=== PATIENT | male | born 1970 | race African-American/Black ===

== ENCOUNTER 2021-11-23 23:02 | Inpatient (IN) | payer MEDICARE, OTHER ==
[~2021-11-23] VITALS: Ht 167.6 cm; Wt 57.2 kg
[2021-11-23] MEDS ORDERED: BLOOD SUGAR DIAGNOSTIC 1 EACH STRIP IN ONE (23:50)
[2021-11-24] MEDS ORDERED: MAGNESIUM HYDROXIDE 30 ML UDC PO PRN
[2021-11-24] MEDS ORDERED: MAG HYDROX/AL HYDROX/SIMETH 30 ML UDC PO PRN
[2021-11-24] MEDS ORDERED: DOCU100C36 PO (00:12)
[2021-11-24] MEDS ORDERED: ERGO500093 PO (00:14)
[2021-11-24] MEDS ORDERED: PANT40TA49 PO (00:15)
[2021-11-24] MEDS ORDERED: QUET400T PO (00:16)
[2021-11-24] MEDS ORDERED: THIA100T70 PO (00:17)
[2021-11-24] MEDS ORDERED: TRAZ-257 PO (00:18)
[2021-11-24] MEDS ORDERED: DIAZ2TAB PO (00:20)
[2021-11-24 01:22] VITALS: BP 139/88
--- NOTE | 2021-11-24 01:40 | NUR ---
GPS RN NEW GRAD NOTES: PATIENT ARRIVED THIS UNIT ON A GURNEY WITH 2 ER ESCORT ON 11/23/21 AT 2315. PATIENT WAS ADMITTED FROM [facility], ORIGINALLY HOMELESS. PATIENT IS ON A 5150 HOLD FOR DTS/GD. HOLD WAS PLACED ON 11/23/21 @ 1240. PER HOLD, PATIENT HAS THOUGHTS OF WALKING IN FRONT OF CARS BECAUSE HIS , CHILDREN AND FAMILY DON'T WANT TO DEAL WITH HIM. PER PATIENT "I DON'T KNOW WHERE TO GO, THERE'S NOTHING FOR ME ON THIS EARTH". PATIENT FEELS DEPRESSED, HOPELESS AND STATED HE DOES NOT SEE A FUTURE ANY MORE. PATIENT ALSO REPORTED HEARING VOICES TELLING HIM TO HURT HIMSELF, SEE'S SHADOWY FIGURES, BLACK BIRDS THAT LOOK LIKE BATS, BELIEVES OTHERS ARE OUT TO GET HURT HIM AND THAT TV TALKS TO HIM. PATIENT HAS NO PLAN FOR SELF CARE. PATIENT DRINKS 1 PINT OF ALCOHOL DAILY. UPON FACE TO FACE EVALUATION, PATIENT IS A/O X3, APPEARS DEPRESSED, FLAT AFFECT, ANXIOUS, DISORGANIZED, POOR INSIGHT, LABILE, ABLE TO MAKE NEEDS KNOWN. PATIENT IS UNDER THE PSYCHIATRIC CARE OF DR AGUILAR AND MEDICAL CARE OF G[facility]A. BOTH WERE NOTIFIED OF PATIENT ADMISSION AND ORDERS CARRIED OUT. PATIENT BELONGINGS WERE INVENTORIED AND CONTRABANDS REMOVED AND PLACED IN CONTRABAND LOCKER. PATIENT HAS NO S/S OF DISTRESS, RESPIRATION EVEN AND UNLABORED WITH EQUAL RISE AND FALL OF THE CHEST, ON ROOM AIR. [id number]. SKIN ASSESSMENT DONE, SKIN INTACT. PATIENT SIGNED ALL ADMISSION PAPER WORK. PER PATIENT HE GOT FULLY VACCINATED FOR COVID 19 IN DECEMBER 2020, HAD HIS FLU SHOT IN JULY 2021 BUT REFUSED PNEUMONIA VACCINE WHEN OFFERED. PATIENT BED IS IN LOWEST POSITION AND LOCKED, SIDE RAILS UP X2 FOR SAFETY. CALL LIGHT WITHIN REACH. OFFERED FLUID AND SNACKS TOLERATED. WILL CONTINUE TO MONITOR Q15 ROUNDS FOR SAFETY, MOOD AND BEHAVIOR.
[2021-11-24 03:39] VITALS: BP 139/88
--- NOTE | 2021-11-24 06:40 | NUR ---
GPS RN CLOSING NOTES: CALLED PATIENT SISTER MELODY BLACK ([phone]) AND LEFT A MESSAGE AND A CALL BACK NUMBER AT [phone]. PATIENT IS CURRENTLY AWAKE, A/O X3. PATIENT SLEPT 5HR THIS SHIFT. NO S/S OF DISTRESS. RESPIRATION EVEN AND UNLABORED WITH EQUAL RISE AND FALL OF THE CHEST, ON ROOM AIR. ALL PATIENT CARE NEEDS HAVE BEEN MET ANTICIPATED. WILL CONTINUE TO MONITOR AND ENDORSE TO AM SHIFT TO FOLLOW UP.
[2021-11-24 06:41] LABS: BASOPHILS # (AUTO) 0.1 K/uL (0.0-0.2); BASOPHILS % (AUTO) 1.3 % (0.0-2.0); EOSINOPHILS % (AUTO) 13.4 % (0.0-6.0); HEMATOCRIT 36 % (39-51); LYMPHOCYTES % (AUTO) 49.9 % (20.0-44.0); MEAN CORPUSCULAR HGB CONC 33 g/dl (31.0-36.0); MEAN CORPUSCULAR VOLUME 95 fL (80-96); MONOCYTES # (AUTO) 0.9 K/uL (0.1-1.30); MONOCYTES % (AUTO) 15.3 % (2.0-12.0); NEUTROPHILS # (AUTO) 1.2 K/uL (1.8-8.9); NEUTROPHILS % (AUTO) 20.1 % (43.0-81.0); PLATELET COUNT (AUTO) 150 K/uL (150-450); RED BLOOD CELL COUNT(AUTO) 3.78 MIL/uL (4.5-6.0); WHITE BLOOD COUNT (AUTO) 6.1 K/uL (4.3-11.0)
[2021-11-24 08:00] VITALS: BP 91/60
[2021-11-24] MEDS: NICOTINE PATCH (21MG) 21 MG PATCH.TD24 TD SCH (09:14)
[2021-11-24] MEDS: PANTOPRAZOLE 40 MG TABLET.DR PO SCH (09:14)
[2021-11-24] MEDS: LORAZEPAM 1 MG TABLET PO PRN ×2 (09:14→20:18)
[2021-11-24] MEDS: DOCUSATE SODIUM 100 MG CAPSULE PO SCH ×2 (09:14→17:31)
[2021-11-24] MEDS: THIAMINE HCL 100 MG TABLET PO SCH (09:14)
--- NOTE | 2021-11-24 09:14 | NUR ---
RN-NOTES PATIENT REQUESTING ATIVAN FOR HIS ANXIETY. ATIVAN 1MG P.O GIVEN PRN ORDER. WILL CONT. MONITORING FOR SAFETY AND BEHAVIOR.
--- NOTE | 2021-11-24 09:53 | NUR ---
SW Source Admit: Pt placed on a 5150 hold for danger to self and GD. Pt brought to the hospital because he was making suicidal comments. Patient is currently homeless and stated that he lives in his friends cars/houses. SW gave pt SNF options, pt stated he will "think about it". Pt will need possible placement.
--- NOTE | 2021-11-24 09:53 | NUR ---
WILLY Initial Discharge Note: Patient is currently homeless and stated that he lives in his friends cars/houses. SW gave pt SNF options, pt stated he will "think about it". Pt will need possible placement. WILLY will work with the MD and treatment team to help coordinate appropriate discharge.
--- NOTE | 2021-11-24 09:58 | NUR ---
WILLY Family Contact: WILLY contacted patient's brother Steven ([phone]) to notify of pt's admission and discuss treatment/discharge plan.
--- NOTE | 2021-11-24 10:06 | NUR ---
Social Work Note/Substance Abuse Intervention: Patient was provided with a brief substance abuse intervention and referred to [facility] ([phone]), [facility] ([phone]), and [facility] ([phone]) for smoking and drinking daily.
[2021-11-24 10:07] LABS: CALCIUM, SERUM 8.3 mg/dL (8.5-10.1); CREATININE 0.8 mg/dL (0.6-1.3); POTASSIUM 4.1 mmol/L (3.5-5.1)
--- NOTE | 2021-11-24 10:15 | NUR ---
RN-NOTES PATIENT WATCHING TV IN THE DAY ROOM,CALM NO ACUTE DISTRESS NOTED.
[2021-11-24 16:00] VITALS: BP 148/96
[2021-11-24 20:00] VITALS: BP 109/76
--- NOTE | 2021-11-24 20:20 | NUR ---
GPS RN NOTES: PATIENT IS RESTLESS, ANXIOUS, PACING IN HALLWAY AND COMPLAINING OF ANXIETY. ATIVAN 1MG GIVEN PO AT 2018. WILL CONTINUE TO MONITOR.
[2021-11-24] MEDS: TRAZODONE 50 MG TABLET PO SCH (22:23)
[2021-11-24] MEDS: QUETIAPINE FUMARATE 100 MG TABLET PO SCH (22:23)
[2021-11-25 07:56] LABS: BASOPHILS # (AUTO) 0.1 K/uL (0.0-0.2); BASOPHILS % (AUTO) 1.6 % (0.0-2.0); EOSINOPHILS % (AUTO) 11.1 % (0.0-6.0); HEMATOCRIT 39 % (39-51); HEMOGLOBIN 12.9 g/dL (13.5-17.5); LYMPHOCYTES % (AUTO) 43.8 % (20.0-44.0); MEAN CORPUSCULAR HGB CONC 33 g/dl (31.0-36.0); MEAN CORPUSCULAR VOLUME 95 fL (80-96); MONOCYTES # (AUTO) 1.1 K/uL (0.1-1.30); MONOCYTES % (AUTO) 15.5 % (2.0-12.0); NEUTROPHILS # (AUTO) 1.9 K/uL (1.8-8.9); PLATELET COUNT (AUTO) 160 K/uL (150-450); RED BLOOD CELL COUNT(AUTO) 4.11 MIL/uL (4.5-6.0); WHITE BLOOD COUNT (AUTO) 6.8 K/uL (4.3-11.0)
[2021-11-25 08:00] VITALS: BP 136/85
[2021-11-25] MEDS: NICOTINE PATCH (21MG) 21 MG PATCH.TD24 TD SCH (08:08)
[2021-11-25] MEDS: QUETIAPINE FUMARATE 100 MG TABLET PO SCH ×2 (08:09→21:20)
[2021-11-25] MEDS: THIAMINE HCL 100 MG TABLET PO SCH (08:09)
[2021-11-25] MEDS: PANTOPRAZOLE 40 MG TABLET.DR PO SCH (08:12)
[2021-11-25] MEDS: LORAZEPAM 1 MG TABLET PO PRN ×3 (09:25→22:36)
[2021-11-25] MEDS: DOCUSATE SODIUM 100 MG CAPSULE PO SCH ×2 (09:26→16:58)
--- NOTE | 2021-11-25 09:26 | NUR ---
RN-NOTES PATIENT REQUESTING ATIVAN FOR HIS ANXIETY. ATIVAN 1MG P.O GIVEN PRN ORDER. WILL CONT. MONITORING FOR SAFETY AND BEHAVIOR.
--- NOTE | 2021-11-25 10:40 | NUR ---
RN-NOTES PATIENT WATCHING TV IN THE DAY ROOM,CALM NO ACUTE DISTRESS NOTED.
[2021-11-25 12:34] LABS: CREATININE 0.8 mg/dL (0.6-1.3); MAGNESIUM 1.5 mg/dL (1.8-2.4); PHOSPHORUS 4.4 mg/dL (2.5-4.9); POTASSIUM 4.2 mmol/L (3.5-5.1)
[2021-11-25] MEDS ORDERED: MAGNESIUM OXIDE 400 MG TABLET PO ONE (15:30)
[2021-11-25] MEDS ORDERED: K PHOS NEUTRAL 250 MG TABLET PO ONE (15:30)
--- NOTE | 2021-11-25 15:47 | NUR ---
RN-NOTES PATIENT REQUESTING ATIVAN FOR HIS ANXIETY. ATIVAN 1MG P.O GIVEN PRN ORDER. WILL CONT. MONITORING FOR SAFETY AND BEHAVIOR.
[2021-11-25 16:00] VITALS: BP 115/70
--- NOTE | 2021-11-25 18:12 | NUR ---
RN-NOTES PATIENT WATCHING TV IN THE DAY ROOM,CALM NO ACUTE DISTRESS NOTED.
--- NOTE | 2021-11-25 19:30 | NUR ---
GPS RN NOTE, RECEIVED PATIENT AWAKE AND IN BED, NO S/S OR COMPLAINTS OF PAIN AT THIS TIME. PATIENT IS DISPLAYING NO S/S OF APPARENT DISTRESS AT THIS TIME. PATIENT BREATHING IS UNLABORED WITH EQUAL RISE AND FALL OF THE CHEST. PATIENT IS ALERT AND ORIENTED X 3 ON ROOM AIR WITH A SPO2 97%. PATIENT IS COMPLIANT WITH MEDICATIONS, ANXIOUS, FOCUSED ON D/C, MAKES NEEDS KNOWN, AND COOPERATIVE. PATIENT DENIES SUICIDAL AND HOMICIDAL IDEATIONS AT THIS TIME. PATIENT ASSISTED WITH TURNING AND REPOSITIONING Q2HR AND PRN FOR COMFORT AND CIRCULATION. PATIENT HAS NO NEEDS AT THIS TIME. PATIENT EDUCATED ON THE USE OF THE CALL STUART. PATIENT BED SIDE RAILS UP X 2 FOR SAFETY. PATIENT BED IS LOCKED, LOW, WITH BED ALARM ON. WILL CONTINUE TO MONITOR THIS PATIENT Q15 MINUTES WITH THE HELP OF STAFF TO MAINTAIN SAFETY.
[2021-11-25 20:00] VITALS: BP 132/68
--- NOTE | 2021-11-25 21:00 | NUR ---
GPS RN NOTE, LAB CALLED WITH A POSITIVE MRSA RESULT IN NARES FOR THIS PATIENT. PAGED [facility] AND INFORMED DENISE MARIANO DNP OF MY FINDINGS. DENISE MARIANO DNP ORDERED BACTROBAN OINT 2 % 1 GM NS Q12HR STARTING AT 0900 AND TO PUT PATIENT ON CONTACT ISOLATION PRECAUTIONS. ALL ORDERS NOTED AND CARRIED WILL CONTINUE TO MONITOR THIS PATIENT WITH THE HELP OF STAFF.
[2021-11-25] MEDS: TRAZODONE 50 MG TABLET PO SCH (21:20)
--- NOTE | 2021-11-25 22:36 | NUR ---
GPS RN NOTE, PATIENT HAS A COMPLAINT OF FEELING ANXIOUS AND IS REQUESTING ATIVAN AT THIS TIME. PATIENT VITAL SIGNS ARE STABLE. GAVE ATIVAN 1MG PO Q4HR PRN ORDERED. WILL REASSESS FOR INSOMNIA AND I WILL CONTINUE TO MONITOR THIS PATIENT WITH THE HELP OF STAFF.
[2021-11-26] MEDS: THIAMINE HCL 100 MG TABLET PO SCH (07:52)
[2021-11-26] MEDS: NICOTINE PATCH (21MG) 21 MG PATCH.TD24 TD SCH (07:52)
[2021-11-26] MEDS: PANTOPRAZOLE 40 MG TABLET.DR PO SCH (07:53)
[2021-11-26] MEDS: QUETIAPINE FUMARATE 100 MG TABLET PO SCH ×2 (07:53→20:54)
[2021-11-26] MEDS: DOCUSATE SODIUM 100 MG CAPSULE PO SCH ×2 (07:53→16:45)
[2021-11-26 08:00] VITALS: BP 145/95
[2021-11-26] MEDS: MUPIROCIN OINT 2% 22 GM TUBE NS SCH ×2 (08:11→20:52)
[2021-11-26] MEDS: LORAZEPAM 1 MG TABLET PO PRN ×2 (10:01→22:06)
--- NOTE | 2021-11-26 10:02 | NUR ---
RN-CO: ATIVAN 1 MG PO GIVEN FOR C/O ANXIETY.
[2021-11-26 16:00] VITALS: BP 103/73
[2021-11-26 19:47] VITALS: BP 144/88
[2021-11-26] MEDS: TRAZODONE 50 MG TABLET PO SCH (21:02)
--- NOTE | 2021-11-26 22:43 | NUR ---
Patient c/o of feeling anxious,requested and given Ativan 1 mg PO as ordered.Will monitor for the effectivity within 1 hour.
--- NOTE | 2021-11-26 22:44 | NUR ---
Patient refused skin assessment.
[2021-11-27 08:00] VITALS: BP 136/90
--- NOTE | 2021-11-27 08:23 | NUR ---
SNF Referral: WILLY sent clinicals to Tereso from [facility] ([phone]) for placement option. WILLY sent H & P, progress notes, and medication list.
[2021-11-27] MEDS: NICOTINE PATCH (21MG) 21 MG PATCH.TD24 TD SCH (09:00)
[2021-11-27] MEDS: QUETIAPINE FUMARATE 100 MG TABLET PO SCH ×2 (09:39→21:11)
[2021-11-27] MEDS: PANTOPRAZOLE 40 MG TABLET.DR PO SCH (09:39)
[2021-11-27] MEDS: THIAMINE HCL 100 MG TABLET PO SCH (09:39)
[2021-11-27] MEDS: DOCUSATE SODIUM 100 MG CAPSULE PO SCH ×2 (09:39→16:38)
[2021-11-27] MEDS: LORAZEPAM 1 MG TABLET PO PRN ×2 (09:40→17:00)
--- NOTE | 2021-11-27 09:40 | NUR ---
pt c/o anxiety medicated with Ativan 1mg Po x1 will continue to monitor .
[2021-11-27] MEDS: MUPIROCIN OINT 2% 22 GM TUBE NS SCH ×2 (09:55→21:12)
--- NOTE | 2021-11-27 14:06 | NUR ---
SNF Contact: SW spoke with Tereso from [facility] ([phone]) who stated that they cannot accept pt due to not having medical issues.
[2021-11-27 16:00] VITALS: BP 104/71
--- NOTE | 2021-11-27 17:01 | NUR ---
pt c/o anxiety medicated with Ativan 1mg Po x1 will continue to monitor .
[2021-11-27 20:29] VITALS: BP 141/92
[2021-11-27] MEDS: TRAZODONE 50 MG TABLET PO SCH (21:11)
[2021-11-27] MEDS: TEMAZEPAM 7.5 MG CAPSULE PO PRN (22:04)
--- NOTE | 2021-11-27 22:11 | NUR ---
patient c/o difficulty falling asleep,requested and given Restoril 7.5 mg PO as ordered.Will monitor for the effect after a hour.
[2021-11-28 08:00] VITALS: BP 122/81
[2021-11-28] MEDS ORDERED: ERGOCALCIFEROL (VITAMIN D 2) 50,000 UNIT CAPSULE PO SCH (09:00)
[2021-11-28] MEDS: NICOTINE PATCH (21MG) 21 MG PATCH.TD24 TD SCH (09:00)
[2021-11-28] MEDS: DOCUSATE SODIUM 100 MG CAPSULE PO SCH ×2 (09:00→17:00)
[2021-11-28] MEDS: PANTOPRAZOLE 40 MG TABLET.DR PO SCH (09:43)
[2021-11-28] MEDS: QUETIAPINE FUMARATE 100 MG TABLET PO SCH ×2 (09:43→21:28)
[2021-11-28] MEDS: SERTRALINE HCL 50 MG TABLET PO SCH (09:43)
[2021-11-28] MEDS: THIAMINE HCL 100 MG TABLET PO SCH (09:43)
[2021-11-28] MEDS: MUPIROCIN OINT 2% 22 GM TUBE NS SCH ×2 (09:48→21:56)
[2021-11-28] MEDS: LORAZEPAM 1 MG TABLET PO PRN (10:19)
--- NOTE | 2021-11-28 10:19 | NUR ---
pt c/o anxiety medicated with Ativan 1mg Po x1 will continue to monitor .
--- NOTE | 2021-11-28 12:59 | NUR ---
SNF Referral: WILLY sent clinicals to Kevyn [facility] from [facility] ([phone]) for placement option. SW sent H & P, progress notes, and medication list.
[2021-11-28 16:00] VITALS: BP 114/61
[2021-11-28 19:54] VITALS: BP 128/76
[2021-11-28] MEDS: TRAZODONE 50 MG TABLET PO SCH (21:49)
[2021-11-29] MEDS: LORAZEPAM 1 MG TABLET PO PRN ×2 (03:02→10:13)
--- NOTE | 2021-11-29 03:05 | NUR ---
GPS RN NOTE: ANXIETY PATIENT VERBALIZED FEELING ANXIOUS, RESTLESS AND REQUESTED ATIVAN. PRN ATIVAN 1 MG PO ADMINISTERED.
[2021-11-29 08:00] VITALS: BP 128/90
[2021-11-29] MEDS: SERTRALINE HCL 50 MG TABLET PO SCH (08:02)
[2021-11-29] MEDS: NICOTINE PATCH (21MG) 21 MG PATCH.TD24 TD SCH (08:02)
[2021-11-29] MEDS: THIAMINE HCL 100 MG TABLET PO SCH (08:02)
[2021-11-29] MEDS: QUETIAPINE FUMARATE 100 MG TABLET PO SCH ×2 (08:02→21:30)
[2021-11-29] MEDS: PANTOPRAZOLE 40 MG TABLET.DR PO SCH (08:02)
[2021-11-29] MEDS: DOCUSATE SODIUM 100 MG CAPSULE PO SCH ×2 (08:03→16:08)
--- NOTE | 2021-11-29 08:44 | NUR ---
Court Hearing Notification: Patient's court hearing for 5250 is today. SW attempted to contact pt's brother Steven ([phone]) and unable to leave a voicemail.
[2021-11-29] MEDS: MUPIROCIN OINT 2% 22 GM TUBE NS SCH ×2 (08:52→21:30)
--- NOTE | 2021-11-29 10:14 | NUR ---
RN-CO: ATIVAN 1 MG PO REQUESTED BY THE PT FOR ANXIETY.
--- NOTE | 2021-11-29 10:57 | NUR ---
Court Hearing: Patient's court hearing for 5250 was today and it was upheld for GD and danger to self.
--- NOTE | 2021-11-29 14:17 | NUR ---
RN-CO: PT C/O ITCHINESS, DR KISER ORDERED 25 MG OF BENADRYL Q 6 PRN, NOTED AND CARRIED OUT. PER PT HE DOES NOT HAVE ANY ALLERGIES TO BENADRYL.
[2021-11-29] MEDS: diphenhydrAMINE HCL 25 MG CAPSULE PO PRN (14:21)
--- NOTE | 2021-11-29 14:27 | NUR ---
RN-CO: ATIVAN GIVEN FOR C/O ANXIETY.
[2021-11-29 16:00] VITALS: BP 110/80
[2021-11-29 20:14] VITALS: BP 132/98
[2021-11-29] MEDS: TEMAZEPAM 7.5 MG CAPSULE PO PRN (21:30)
[2021-11-29] MEDS: TRAZODONE 50 MG TABLET PO SCH (21:30)
[2021-11-30 08:00] VITALS: BP 135/89
[2021-11-30] MEDS: QUETIAPINE FUMARATE 100 MG TABLET PO SCH ×2 (08:26→21:24)
[2021-11-30] MEDS: PANTOPRAZOLE 40 MG TABLET.DR PO SCH (08:26)
[2021-11-30] MEDS: THIAMINE HCL 100 MG TABLET PO SCH (08:27)
[2021-11-30] MEDS: SERTRALINE HCL 50 MG TABLET PO SCH (08:27)
[2021-11-30] MEDS: LORAZEPAM 1 MG TABLET PO PRN ×2 (08:37→12:41)
[2021-11-30] MEDS: NICOTINE PATCH (21MG) 21 MG PATCH.TD24 TD SCH (08:37)
[2021-11-30] MEDS: DOCUSATE SODIUM 100 MG CAPSULE PO SCH ×2 (08:37→16:10)
--- NOTE | 2021-11-30 08:38 | NUR ---
GPS RN NOTE: ANXIETY PATIENT VERBALIZED FEELING ANXIOUS, RESTLESS AND REQUESTED ATIVAN. PRN ATIVAN 1 MG PO ADMINISTERED.
[2021-11-30] MEDS: MUPIROCIN OINT 2% 22 GM TUBE NS SCH ×2 (08:55→21:32)
--- NOTE | 2021-11-30 12:41 | NUR ---
GPS RN NOTE: ANXIETY PATIENT VERBALIZED FEELING ANXIOUS, RESTLESS AND REQUESTED ATIVAN. PRN ATIVAN 1 MG PO ADMINISTERED.
[2021-11-30] MEDS: diphenhydrAMINE HCL 25 MG CAPSULE PO PRN (15:55)
[2021-11-30 16:00] VITALS: BP 135/86
[2021-11-30 20:46] VITALS: BP 143/91
[2021-11-30] MEDS: TRAZODONE 50 MG TABLET PO SCH (21:24)
[2021-12-01] MEDS: diphenhydrAMINE HCL 25 MG CAPSULE PO PRN (03:08)
--- NOTE | 2021-12-01 03:12 | NUR ---
GPS RN NOTES: PATIENT C/O ITCHINESS. BENADRYL 25MG/1CAP GIVEN PO AT 0308. WILL CONTINUE TO MONITOR.
[2021-12-01 08:00] VITALS: BP 130/79
--- NOTE | 2021-12-01 08:12 | NUR ---
Discharge Note: Patient will be discharged to longterm facility [facility] [address], [place] [address]; ). Please arrange transportation at 1PM. Automatic Nailing [employer] Feeder spoke with Kevyn pipe connector at [facility]; ([phone], who stated patient will be accepted today. SW contacted patients brother Steven ([phone]) was unavailable. Patient is alert and oriented x3 and is unable to plan for self-care. Patient denies any suicidal or homicidal ideations. Patient is aware and agreeable with discharge plans. located at [address], [place] [address]; ([phone]) and (typewriter assembly and parts inspector) Dr. Velazco [address], [place] [address]; ([phone]). Patient refused to sign the homeless waiver upon discharge and a copy was placed in the chart. Homeless resources were provided and include [address] information line for shelters and homeless resources. A copy of all resources given to patient was also placed in the chart. Patient presents with euthymic and congruent mood.
[2021-12-01] MEDS: SERTRALINE HCL 50 MG TABLET PO SCH (08:57)
[2021-12-01] MEDS: MUPIROCIN OINT 2% 22 GM TUBE NS SCH (08:57)
[2021-12-01] MEDS: QUETIAPINE FUMARATE 100 MG TABLET PO SCH (08:57)
[2021-12-01] MEDS: NICOTINE PATCH (21MG) 21 MG PATCH.TD24 TD SCH (08:57)
[2021-12-01] MEDS: THIAMINE HCL 100 MG TABLET PO SCH (08:57)
[2021-12-01] MEDS: PANTOPRAZOLE 40 MG TABLET.DR PO SCH (08:57)
[2021-12-01] MEDS: DOCUSATE SODIUM 100 MG CAPSULE PO SCH (08:57)
--- NOTE | 2021-12-01 14:30 | NUR ---
SIGN LANGUAGE INSTRUCTOR NOTE- PT DC AT [facility]URNEY. DC INSTRUCTIONS AND AFTERCARE REPORT PHONED TO FACILITY. VS STABLE, ALERT ORIENTED TO PERSON PLACE TIME PURPOSE. DENIES SI HI AH VH. ID WRISTBAND REMOVED. ESCORTED OFF UNIT BY AMBULANCE STAFF.
== END 2021-12-01 14:30 | DRG 885 ==
LOC: GPS 23:02
PROVIDERS: ADMIT Psychiatry & Neurology Psychiatry; ATTEND Registered Nurse
DX: F25.9 Schizoaffective disorder, unspecified (principal); F29 Unspecified psychosis not due to a substance or known physiological condition; F41.9 Anxiety disorder, unspecified; Z73.6 Limitation of activities due to disability; G47.00 Insomnia, unspecified; F32.A Depression, unspecified; F10.10 Alcohol abuse, uncomplicated; D70.9 Neutropenia, unspecified; Z59.00 Homelessness unspecified; Z91.51 Personal history of suicidal behavior; F17.200 Nicotine dependence, unspecified, uncomplicated; Y90.9 Presence of alcohol in blood, level not specified; Z22.322 Carrier or suspected carrier of Methicillin resistant Staphylococcus aureus
CPT/HCPCS: 36415; 80048-TC; 80061-TC; 82962-TC; 83735-TC; 84100-TC; 85025-TC; 87081-TC; 97112-TC; 97116-TC; 97530-TC; Q0163

== ENCOUNTER 2022-01-01 12:15 | Emergency (ER) | payer MEDICARE, OTHER ==
[~2022-01-01] VITALS: Ht 167.6 cm; Wt 59.0 kg
[~2022-01-01 12:15] MED LIST: DOCU100C36 PO; ERGO500093 PO; PANT40TA49 PO; THIA100T70 PO
[2022-01-01 13:08] LABS: BASOPHILS # (AUTO) 0.1 K/uL (0.0-0.2); BASOPHILS % (AUTO) 1.3 % (0.0-2.0); HEMATOCRIT 50 % (39-51); HEMOGLOBIN 16.3 g/dL (13.5-17.5); LYMPHOCYTES % (AUTO) 47.7 % (20.0-44.0); MEAN CORPUSCULAR HGB CONC 33 g/dl (31.0-36.0); MEAN CORPUSCULAR VOLUME 90 fL (80-96); MONOCYTES # (AUTO) 0.6 K/uL (0.1-1.30); MONOCYTES % (AUTO) 9.3 % (2.0-12.0); NEUTROPHILS # (AUTO) 2.2 K/uL (1.8-8.9); NEUTROPHILS % (AUTO) 34.7 % (43.0-81.0); PLATELET COUNT (AUTO) 127 K/uL (150-450); RED BLOOD CELL COUNT(AUTO) 5.49 MIL/uL (4.5-6.0); WHITE BLOOD COUNT (AUTO) 6.3 K/uL (4.3-11.0)
[2022-01-01 13:40] LABS: ALANINE AMINOTRANSFERASE 205 U/L (12-78); ALKALINE PHOSPHATASE 109 U/L (46-116); ASPARTATE AMINOTRANSFERASE 257 U/L (15-37); BILIRUBIN,DIRECT 0.2 mg/dL (0.0-0.2); BILIRUBIN,TOTAL 0.9 mg/dL (0.2-1.0); CALCIUM, SERUM 8.4 mg/dL (8.5-10.1); CARBON DIOXIDE 26 mmol/L (21-32); CHLORIDE 105 mmol/L (98-107); CREATININE 0.7 mg/dL (0.6-1.3); GLUCOSE 122 mg/dL (74-106); POTASSIUM 3.6 mmol/L (3.5-5.1); SODIUM SERUM 144 mmol/L (136-145); TOTAL PROTEIN, SERUM 7.9 g/dL (6.4-8.2); UREA NITROGEN, BLOOD 11 mg/dL (7-18)
[2022-01-01 13:46] LABS: ACETAMINOPHEN < 10 ug/ml (10-30); ALCOHOL, BLOOD 313 mg/dL (0-0)
[2022-01-01 13:57] LABS: BILIRUBIN,URINE NEGATIVE (NEGATIVE); COLOR,URINE YELLOW (YELLOW); LEUKOCYTE ESTERASE ,URINE NEGATIVE (NEGATIVE); NITRITE, URINE NEGATIVE (NEGATIVE); PROTEIN,URINE NEGATIVE (NEGATIVE); UGLUCOSE NEGATIVE (NEGATIVE)
[2022-01-01 14:33] LABS: BACTERIA,URINE RARE /HPF (None Seen); CALCIUM CARBONATE CRYSTALS,UR None Seen /HPF (None Seen); CALCIUM OXALATE CRYSTALS,UR None Seen /HPF (None Seen); CALCIUM PHOSPHATE CRYSTALS,UR None Seen /HPF (None Seen); SQUAMOUS EPITHELIAL CELL,UR RARE /HPF (None Seen); TRICHOMONAS,URINE None Seen /HPF (None Seen); TRIPLE PHOSPHATE CRYSTAL,UR None Seen /HPF (None Seen); TYROSINE CRYSTAL,URINE None seen /HPF (None Seen); URIC ACID CRYSTALS,URINE None Seen /HPF (None Seen); YEAST,URINE None Seen /HPF (None Seen)
[2022-01-01 14:34] LABS: COARSE GRANULAR CASTS,URINE None Seen /LPF (None Seen); CYSTINE CRYSTALS,URINE None Seen /HPF (None Seen); FATTY CASTS,URINE None Seen /LPF (None Seen); FINE GRANULAR CASTS,URINE None Seen /LPF (None Seen); HYALINE CASTS, URINE None Seen /LPF (None Seen); MUCUS,URINE None Seen /LPF (None Seen); OTHER CRYSTALS,URINE None Seen /HPF (None Seen); RED BLOOD CELL CASTS,URINE None Seen /LPF (None Seen); SPERM,URINE None Seen /HPF (None Seen); URINE AMORPHOUS PHOSPHATES None Seen /HPF (None Seen); URINE AMORPHOUS URATE None Seen /HPF (None Seen); WAXY CASTS,URINE None Seen /LPF (None Seen)
[2022-01-01 23:35] VITALS: BP 154/99
== END 2022-01-01 23:37 | disposition home or self-care (01) ==
LOC: ER 12:19
DX: R45.851 Suicidal ideations (principal); Z87.892 Personal history of anaphylaxis; Z88.6 Allergy status to analgesic agent; Z91.013 Allergy to seafood; Z88.8 Allergy status to other drugs, medicaments and biological substances; Z91.018 Allergy to other foods; Z20.822 Contact with and (suspected) exposure to COVID-19; F10.129 Alcohol abuse with intoxication, unspecified; Y90.8 Blood alcohol level of 240 mg/100 ml or more
CPT/HCPCS: 36415; 80048-TC; 80076-TC; 81001; 85025-TC; C9803; G0480